=== PATIENT | female | born 2000 | race Caucasian/White ===

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

== ENCOUNTER 2022-07-04 14:43 | Emergency (ER) | payer OTHER, SELFPAY ==
[2022-07-04 14:57] VITALS: BP 124/67; PULSE 82; RESP 16; TEMP 36.6; O2SAT 100
--- NOTE | 2022-07-04 15:10 | ED.URI ---
HPI - URI/Sore Throat General Chief Complaint: Upper Respiratory Infection Stated Complaint: Fatigue,Sore Throat Time Seen by Provider: 07/04/22 15:10 History of Present Illness HPI Narrative: 22-year-old female presented for complaint of sore throat, fatigue, and chills since last night. She endorses intermittent sore throat for about a month. She denies associated sinus pressure, congestion, cough, sob, wheezing, nausea, vomiting, diarrhea or fever. She denies known sick contacts. She has taken nothing for symptoms. Related Data Home Medications Medication Instructions Recorded Confirmed No Home Medications 07/04/22 07/04/22 Allergies Allergy/AdvReac Type Severity Reaction Status Date / Time No Known Allergies Allergy Verified 07/04/22 14:46 Review of Systems Review of Systems: CONSTITUTIONAL: Denies body aches, fever, chills, or sweats. EYES: Denies visual changes, redness, or discharge. ENT: Denies rhinorrhea, congestion, or otalgia. CARDIOVASCULAR: Denies chest pain, palpitations, or edema. RESPIRATORY: Denies dyspnea. GASTROINTESTINAL: Denies abdominal pain, nausea, vomiting, or diarrhea. SKIN: Denies rash, itching, or wounds. MUSCULOSKELETAL: Denies back pain, joint pain, or myalgia. NEUROLOGIC: Denies headache PMFSH Past Medical History Medical History (Updated 07/04/22 @ 15:19 by Nisa Graf, APPRENTICE PAINTER HAND) No pertinent past medical history Exam Narrative: GENERAL: well-appearing EYES: conjunctivae clear ENT: Mucous membranes moist. TMs pearly frias with normal light reflex bilaterally; no tragal tenderness. Oropharynx mildly erythematous without lesions. Tonsils enlarged 2+ without exudate. No drooling, no hoarseness, no trismus, uvula midline. No tripod positioning, hot potato voice, or soft palate swelling. NECK: Supple. No lymphadenopathy CHEST: Clear to auscultation, breath sounds equal. HEART: Regular rate and rhythm. No murmur heard. SKIN: Warm, dry, no rash. NEURO: Alert and oriented x3. Course Course Emergency Course: Patient is aware of diagnosis, understands and agrees to treatment plan. Anticipatory guidance given. Patient agrees to follow-up as directed and is aware of reasons to seek care at the emergency department. Portions of this record may have been created with voice recognition software Level of Care: Express Care Visit Vital Signs Vital signs: Vital Signs Temperature 97.8 F 07/04/22 14:57 Pulse Rate 82 07/04/22 14:57 Respiratory Rate 16 07/04/22 14:57 Blood Pressure 124/67 07/04/22 14:57 Pulse Oximetry 100 07/04/22 14:57 Oxygen Delivery Room Air 07/04/22 14:57 Temperature 97.8 F 07/04/22 14:57 Pulse Rate 82 07/04/22 14:57 Respiratory Rate 16 07/04/22 14:57 Blood Pressure 124/67 07/04/22 14:57 Pulse Oximetry 100 07/04/22 14:57 Oxygen Delivery Room Air 07/04/22 14:57 MDM - URI/Sore Throat MDM Narrative Medical decision making narrative: strep result reviewed with pt. Advise supportive treatments. Patient is appropriate for outpatient treatment and follow-up. Differential Diagnosis Differential diagnosis: Likely upper respiratory infection, viral infection and pharyngitis Discharge Plan Discharge Clinical Impression: Pharyngitis Patient Disposition: Home, Self-Care Condition: Stable Instructions: Pharyngitis (ED) Additional Instructions: Rapid strep swab was negative today You will be notified in a few days if the culture comes back positive for strep, and appropriate antibiotics will be called in at that time. if symptoms are due to a viral illness, it is not treated with antibiotics. Viral symptoms can be present for up to 10-14 days. Recommend Flonase spray and Zyrtec for sinus congestion Cough syrup may cause drowsiness; avoid driving or take it at night time. Tylenol every 8 hours as needed for pain/fever Soft foods, cool liquids, warm tea. Gargle with warm saltwater twice a
== END 2022-07-04 15:16 | disposition home or self-care (01) ==
PROVIDERS: Emergency Provider Nurse Practitioner Family
DX: J02.9 Acute pharyngitis, unspecified (principal)
CPT/HCPCS: 87081; 87880; 99213; G0463

== ENCOUNTER 2023-05-06 13:53 | Emergency (ER) | payer OTHER, SELFPAY ==
--- NOTE | 2023-05-06 14:04 | ED.URI ---
HPI - URI/Sore Throat General Chief Complaint: Upper Respiratory Infection Stated Complaint: fever,nausea Time Seen by Provider: 05/06/23 14:04 History of Present Illness HPI Narrative: 23 y/o female presented for c/o sore throat, nausea, headache. Onset last night. Woke today with temp up to 100.8. Took 3 ibuprofen. Endorses being around crowds the past few days. Denies sob, wheezing, vomiting, or lethargy. Related Data Allergies Allergy/AdvReac Type Severity Reaction Status Date / Time No Known Allergies Allergy Verified 05/06/23 14:05 Review of Systems Review of Systems: CONSTITUTIONAL: reports body aches, fever, chills EYES: Denies visual changes, redness, or discharge. ENT: Reports sore throat Denies rhinorrhea, congestion, or otalgia. CARDIOVASCULAR: Denies chest pain, palpitations, or edema. RESPIRATORY: Denies dyspnea. GASTROINTESTINAL: Denies abdominal pain, vomiting, or diarrhea. SKIN: Denies rash, itching, or wounds. MUSCULOSKELETAL: Denies back pain, joint pain PMFSH Past Medical History Medical History No pertinent past medical history Exam Narrative: GENERAL: well-appearing, no acute distress. EYES: conjunctivae clear ENT: Mucous membranes moist. TMs pearly frias with normal light reflex bilaterally; no tragal tenderness. Oropharynx erythematous without lesions. Tonsils enlarged 2+ without exudate. No drooling, no hoarseness, no trismus, uvula midline. No tripod positioning, hot potato voice, or soft palate swelling. NECK: Supple. No lymphadenopathy CHEST: Clear to auscultation, breath sounds equal. No respiratory distress, speaks in full sentences. HEART: Regular rate and rhythm. No murmur heard. SKIN: Warm, dry, no rash. NEURO: Alert and oriented x3. Course Course Emergency Course: Patient is aware of diagnosis, understands and agrees to treatment plan. Anticipatory guidance given. Patient agrees to follow-up as directed and is aware of reasons to seek care at the emergency department. Portions of this record may have been created with voice recognition software Level of Care: Express Care Visit MDM - URI/Sore Throat MDM Narrative Medical decision making narrative: flu, covid, strep result reviewed with pt. Will treat for strep based on PE and cc. Advise supportive treatments. Patient is appropriate for outpatient treatment and follow-up. Differential Diagnosis Differential diagnosis: Likely upper respiratory infection, otitis media, sinusitis, viral infection, bronchitis, influenza and pharyngitis Discharge Plan Discharge Clinical Impression: Pharyngitis Patient Disposition: Home, Self-Care Condition: Stable Instructions: Antibiotic Form, Strep Throat (ED) Additional Instructions: - Take the antibiotic as directed. Fever and sore throat typically resolve within one to three days. Most patients can return to work, school, after 12 to 24 hours of antibiotic therapy, provided you are fever free and otherwise well. -Eat and drink things that are easy to swallow, like soft foods, cool liquids, tea with honey, or popsicles . -Salt water gargles and/or may use topical anesthetic ( Chloraseptic spray) or lozenges to relieve dryness or throat pain -Alternate Tylenol and ibuprofen as needed for pain and fever as directed. -Frequent hand washing or hand housing development specialist is one of the best ways to prevent spread of infection. Throw away the toothbrush after 24hours of antibiotic. -Follow up with primary care provider in 2-3 days if condition is not improving -Go to the ER if you have trouble breathing, cannot drink enough fluids, have muffled voice or drooling, difficulty opening your mouth, or severe swelling. Prescriptions: New amoxicillin 500 mg tablet 1,000 mg PO DAILY 10 Days Qty: 20 0RF Follow-up/Referrals: UNKNOWN,DOCTOR [Primary Care Provider] - Time of Disposition: 14:34
[2023-05-06 14:05] VITALS: BP 120/79; PULSE 110; RESP 18; TEMP 36.4; O2SAT 100
== END 2023-05-06 14:37 | disposition home or self-care (01) ==
PROVIDERS: Emergency Provider Nurse Practitioner Family
DX: J02.9 Acute pharyngitis, unspecified (principal); Z20.822 Contact with and (suspected) exposure to COVID-19
CPT/HCPCS: 87081; 87426; 87804; 87880; 99213; G0463

== ENCOUNTER 2024-06-15 14:46 | Emergency (ER) | payer OTHER, SELFPAY ==
[2024-06-15 15:06] VITALS: BP 153/83; PULSE 69; RESP 18; TEMP 36.5; O2SAT 100
--- NOTE | 2024-06-15 15:22 | ED.BACK ---
HPI - Back Pain/Injury General Chief Complaint: Back Pain/Injury Stated Complaint: lower Back Pain Time Seen by Provider: 06/15/24 15:51 Source: patient, RN notes reviewed and old records reviewed Mode of arrival: ambulatory Limitations: no limitations History of Present Illness HPI Narrative: 24-year-old female presents to the [facility] with complaints of right lower back pain for 3 weeks. States that she does a lot of heavy lifting pushing and pulling at work. Denies any loss retention of bowel bladder. No numbness or tingling in extremities. Walks with normal gait. No issues with changing positions. Denies abdominal pain. Denies any urinary symptoms. No CVA tenderness Onset (ago): week(s) (3) Related Data Allergies Allergy/AdvReac Type Severity Reaction Status Date / Time No Known Allergies Allergy Verified 06/15/24 15:30 Review of Systems Review of Systems: All systems reviewed & are unremarkable except as noted in HPI and below Constitutional: Constitutional: Reports no additional constitutional complaints ENT: Reports system reviewed and no additional complaints, except as documented Cardiovascular: Cardiovascular: Reports no additional cardiovascular complaints, Denies chest pain and Denies dyspnea Respiratory: Respiratory: Reports no additional respiratory complaints, Denies chest congestion, Denies cough and Denies dyspnea Musculoskeletal: Musculoskeletal: Reports as per HPI Integumentary/Breasts: Skin/Breast: Reports system reviewed and no additional complaints, except as docu PMFSH Past Medical History Medical History No pertinent past medical history Comments At the time of my signature, I reviewed and agree with the nursing past medical, surgical, social, and family history. There is no relevant family history pertinent to the patient complaint. Exam Const: General: cooperative, healthy appearing, comfortable, no acute distress, well developed, alert and well nourished Nutritional Appearance: well nourished Orientation/consciousness: patient oriented x3 Limitations: no limitations HENMT: Head: normal to inspection Eyes: General: appearance normal, both eyes and all related structures Alignment and Position: alignment normal Neck: Neck: normal visual inspection, full ROM, no lymphadenopathy and no meningeal signs Chest: Chest palpation & inspection: normal inspection of the chest Resp: Effort & Inspection: normal respiratory effort and able to speak in complete sentences Auscultation: clear to auscultation bilaterally, no crackles, no rales, no rhonchi and no wheezes Cardio: Rate: regular rate GI: GI Palp: No abdominal tenderness : General: Yes no CVA tenderness Back/Spine/Pelvis: Back: no CVA tenderness, No warmth, No sacral edema and No ecchymosis Cervical Spine: normal cervical lordosis, cervical ROM normal and No cervical muscular tenderness Thoracic/Lumbar Spine: No thoracic spinal tenderness and No lumbar spinal tenderness Back/spine/pelvis image:  1. Reports 3 weeks of intermittent discomfort. No erythema, ecchymosis. No rashes. No midline tenderness Skin: General skin exam: normal color and no rashes or lesions noted Neuro: General: patient oriented x3, gait normal, moves all extremities and no meningeal signs Cognition (Neuro): normal cognition Speech: normal speech Gait exam (Neuro): Normal gait present Extrem: General: normal to inspection, full ROM, capillary refill normal and normal gait Psych: Appearance: grossly normal and well kempt Mental Status: mental status grossly normal Speech and movement: Normal speech and movement present and Clear speech present Affect: normal affect Attitude: cooperative Course Course Level of Care: Express Care Visit Vital Signs Vital signs: Vital Signs Temperature 97.7 F 06/15/24 15:06 Pulse Rate 69 06/15/24 15:06 Respiratory Rate 18 06/15/24 15:06 Blood Pressure 153/83 H 06/15/24 15:06 Pulse Oximetry 100 06/15/24 15:06 Oxygen Delivery Room Air 06/15/24 15:06 Temperature 97.7 F 06/15/24 15:06 Pulse Rate 69 06/15/24 15:06 Respiratory Rate 18 06/15/24 15:06 Blood Pressure 153/83 H 06/15/24 15:06 Pulse Oximetry 100 06/15/24 15:06 Oxygen Delivery Room Air 06/15/24 15:06 Reviewed MDM - Back Pain/Injury MDM Narrative Medical decision making narrative: Patient presents with 3 week history of back pain. No injury. Patient is sitting comfortably in exam room. Is able to change positions without issue. Denies any injury. No midline tenderness. No loss retention bowel bladder. No numbness or tingling in extremities. Patient is appropriate for outpatient treatment with probable muscle strain of the lower back. Discharge instructions reviewed with patient, as well as provided in writing per nursing staff. The instructions also include specific and strict return/GO TO THE ER as well as f/u information. All questions have been answered, and the patient deny any further questions with discharge and discharge plan. Some parts of this dictation were generated by voice recognition software and may contain typographical and/or grammatical inaccuracies. Differential Diagnosis Differential diagnosis: Likely lumbar radiculopathy, sciatica and strain of lumbar region Critical Care Time Critical Care Time Critical Care Time: No Discharge Plan Discharge Clinical Impression: Low back pain Qualifiers: Chronicity: acute Back pain laterality: right Sciatica presence: without sciatica Qualified Code(s): M54.50 - Low back pain, unspecified Patient Disposition: Home, Self-Care Condition: Stable Instructions: Low Back Strain (ED), Lower Back Exercises (ED) Additional Instructions: Take ibuprofen as directed to decrease inflammation and to help pain. Take Baclofen (muscle relaxer) as directed. Do not drink, drive, operate machinery, or do anything dangerous while taking this medication Exercise:Combine aerobic exercise, like walking or swimming, with specific exercises to keep the muscles in your back and abdomen strong and flexible. Proper Lifting:Be sure to lift heavy items with your legs, not your back. Do not bend over to pick something up. Keep your back straight and bend at your knees. Weight:Maintain a healthy weight. Being overweight puts added stress on your lower back. Avoid Smoking:Both the smoke and the nicotine cause your spine to age faster than normal. Proper Posture:Good posture is important for avoiding future problems. A therapist can teach you how to safely stand, sit, and lift. Use warm moist heat to help with pain. Using topical such as Biofreeze, Johnny-Brian or Aspercreme can also help Follow up with Primary provider in 2-3 days, This may become a chronic condition and they will be the one to help manage your pain and order additional testing. If you are having a hard time finding a physician please call our [facility] liaison at [phone]. Go to the nearest ER if you develop problems with bladder/bowel function, weakness or loss of feeling in one or both of your legs. Patient Language: Peruvian Prescriptions: New ibuprofen 600 mg tablet 600 mg PO TID PRN (Reason: fever or pain) Qty: 30 0RF baclofen 10 mg tablet 10 mg PO TID PRN (Reason: muscle pain) Qty: 10 0RF Follow-up/Referrals: PHYSICIAN,GRAPHIC DESIGN INTERN [Primary Care Provider] - Stand Alone Forms: Work/School Release IP Time of Disposition: 15:57
--- OUTSIDE RECORDS SUMMARY | 2024-06-15 17:14 | XMS_ITS | Continuity of Care Document ---
Author Organization [facility], TD Address [address] [place] [address] Phone Care Team Providers Care Vending Machine Filler Name Role Phone Ravi Ibarra MD Unavailable Unavailable Allergies, Adverse Reactions, Alerts Substance Reaction Status Criticality No Known Drug Allergies Active No I nformation Medications Medication Instructions Dosage Effective Dates (start - stop) Status Comments CALCIO JONATHAN (unknown strength) Not Available - Active MULTIVITAMINS (unknown strength) Not Available - Active Procedures Procedure Date EYE EXAM ESTABLISHED PATIENT, MEDICAL Au EYE EXAM ESTABLISHED PATIENT, MEDICAL No REFRACTION NO UPDATE EYE EXAM ESTABLISHED PATIENT, MEDICAL Ju l REFRACTION OPTIONAL UPDATE EYE EXAM ESTABLISHED PATIENT, MEDICAL Ap r REFRACTION OPTIONAL UPDATE Advance Directives Directive Yes / No Effective Date File Name No Information Encounters Encounter Description Practice Location Reason(s) For Visit Diagnoses Date Provider Providers Copied on Encounter [facility], [facility], [address] [place], [place], [id number] , [place] tel: [phone] [facility] no problems with vision and no complaints (chief complaint). (chief complaint)n o problems with vision and no complaints (chief complaint). (chief complaint) Congenital nuclear cataractHypermetropi a 5 Fred Rodrigues. [address], [place], [id number] , [place]. tel: [phone] [facility], [address] [place] [address], [id number] , tel: [phone] [facility] no problems with V/A and no complaints (chief complaint) Congenital nuclear cataractHypermetropi a 3 Fred Rodrigues. [address] [place] [address], [address] [place] [address] , . tel: [phone] [facility], [address] [place] [address], [address] [place] [address] , tel: [phone] [facility] no problems with V/A and no complaints (chief complaint) HypermetropiaCongeni marily nuclear cataract 2 Fred Rodrigues. [address] [place] [address], [address] [place] [address] , . tel: [phone] [facility], [address] [place] [address], [address] [place] [address] , tel: [phone] [facility] No Information 1 Fred Rodrigues. [address] [place] [address], [address] [place] [address] , . tel: [phone] Family History Family Member Type Diagnosis Age At Onset Problem (finding) No Family history of St roke Problem (finding) No Family history of Ca taracts Problem (finding) No Family history of Re spiratory Disease Problem (finding) No Family history of As thma Problem (finding) No Family history of Di abetes mellitus Problem (finding) No Family history of He art Disease Problem (finding) No Family history of St rabismus Problem (finding) No Family history of Gl aucoma Mother Problem (finding) Alive and well Problem (finding) No Family history of HB P Problem (finding) No Family hist ory of Macular Degeneration Problem (finding) No Family history of Re tinal Disorders Father Problem (finding) aphasia Payers Payer name Insurance type Covered constitution party ID Authoriza tion(s) No Information Social History Type Description Quantity Date Captured Comments Alcohol Use Details Unknown Caffeine Use Details Unknown Tobacco Use Status No Information Smoking Status No Information Sex Female Chief Complaint And Reason For Visit From encounter dated '11/27/2014 10:30'. no problems with vision and no complaints (chief complaint). Description: The 14 Year 10 Months oldfemale presents for followup Congenital Cataract OD. Pt reports no problems with vision and no complaints in the right eye and left eye since last seen on 03/07/13. Vision good, stable and constant D& N c gls and cls. The patient denies pain or discomfort. Pt is not using eye gtts. . (chief complaint). Description: Mother reports patient sees a at [facility] in their hometown for yearly refraction. Pt was last seen 04/04/14. no problems with vision and no complaints (chief complaint) . (chief complaint) Reason For Referral Reason For Referral No Information History Of Present Illness Encounter Date Complaint History Of Prese nt Illness no problems with vis ion and no complaints The 14 Year 10 Months old female presents for followup Congenital Cataract OD. Pt reports no problems with vision and no complaints in the right eye and left eye since last seen on 03/07/13. Vision good, stable and constant D & N c gls and cls. The patient denies pain or discomfort. Pt is not using eye gtts. . Mother reports p atient sees a at [facility] in their hometown for yearly refraction. Pt was last seen 04/04/14. Functional Status Date Functional Assessmen t No Information Instructions Date Instruction Additional Infor mike Impression/Plan - Co ngenital cataract looks unchanged in the OD. Things look stable overall. Can continue with current glasses & C/L Rx (pt. gets refraction & C/L elsewhere since she lives far away). Will follow up in 1 year. Pt. to call if problems. Follow up - Return i n [address] [facility] for T & D. - Return in [address] [facility] for Ref T & D. Related to Congenital cataract Congenital cataract OD. Condition: established, stable. Hyperopia OU. Condition: established, stable. - Cataract is staying the same OD. Current C/L Rx is adequate. Will follow up in 1 year. Pt. to call if having any problems. Related to Congenital cataract - Return in 1 year w [facility] for C/L Ref T & D. Related to Congenital cataract Hyperopia OU. Condit ion: established, stable. Congenital cataract OD. Condition: established, stable. - Educational materials provided:none needed. The cataract is staying stable. Ok to try contact lens if mom feels she can take care of them. Recommend soft disposable contact lens. She can not sleep in them. No extended wear until at least age 18. Related to Congenital cataract Assessments Type Assessment Date assessment Congenital nuclear cataract assessment Hypermetropia Patient Care Teams Name Effective Dates (start - stop) Status Members No Information
--- OUTSIDE RECORDS SUMMARY | 2024-06-15 17:14 | XMS_ITS | Clinical Summary ---
Author Organization [facility] Address [address] [place] [id number] Care Team Providers Care Watchstander Name Role Phone Ro Arredondo MD Primary Care Provider Allergies No known active allergies Medications No known medications Active Problems Problem Noted Date Diagnosed Date Ingrowing nail 05/04/2015 Paronychia of toe 05/04/2015 Resolved Problems Problem Noted Date Diagnosed Date Resolved Date Well child visit 05/04/2015 01/09/2021 Family History Medical History Relation Comments Alzheimers Father No Known Problems Maternal Grandfather Heart Disease Maternal Grandmother Lung Disease Maternal Grandmother No Known Problems Mother Cancer Paternal Grandfather Bone Alzheimers Paternal Grandmother Relation Status Comments Father Maternal Grandfather Maternal Grandmother Mother Paternal Grandfather Paternal Grandmother Social History Tobacco Use Types Packs/Day Years Used Date Smoking Tobacco: Never Smokeless Tobacco: Never Tobacco Cessation:Counseling Given: No Alcohol Use Standard Drinks/Week Comments Never 0 (1 standard drink = 0.6 oz pur e alcohol) PHQ-2 Answer Date Recorded PHQ-2 Score - If the patient scores above 3, please move on to questions 3-9 0 01/03/2021 Comments Unknown Sex and Gender Information Value Date Recorded Sex Assigned at Female 01/03/2021 4:24 PM CDT Legal Sex Female 8:27 PM CDT Gender Identity Female 01/03/2021 4:24 PM CDT Sexual Orientation Straight 01/03/2021 4: 24 PM CDT Last Filed Vital Signs Vital Sign Reading Time Taken Comments Blood Pressure 122/80 09/05/2022 5:12 PM CDT Pulse 81 09/05/2022 5:12 PM CDT Temperature - - Respiratory Rate 20 07/25/2022 2:45 PM CDT Oxygen Saturation 100% 09/05/2022 5:12 PM CDT Inhaled Oxygen Concentration - - Weight 100.5 kg (221 lb 9.6 oz) 09/05/2022 5:12 PM CDT Height 165.1 cm (5' 5 ) 07/25/2022 2:45 PM CDT Body Mass Index 36.88 07/25/2022 2:45 PM CDT Plan of Treatment Health Maintenance Due Date Last Done Comments Cervical Cancer Screening Pa p Smear (Age 21 to 29) Every 3 Years 2002 Cervical Cancer Screening 2002 Annual Physical 2005 PHQ-2 ([employer]) 2014 HPV Vaccines (1 - 3-dose series) 2017 Meningococcal B Vaccine (1 o f 2 - Standard) 2018 Hepatitis C 01/15/2020 DTaP, Tdap and Td Vaccines ( 1 - Tdap) 2021 Hepatitis B Vaccines (1 of 3 - 19+ 3-dose series) 2021 COVID-19 Vaccine (3 - 2023-2 5 season) 2023 09/28/2020, 09/07/2020 Influenza Adult (#1) 2024 PHQ-2 ([employer]) 04/22/2024 Meningococcal Vaccine Aged Out No alexx judah eligible based on patient's age to complete this topic Pneumococcal Vaccine: Pediatrics (0 to 5 Years) and At-Risk Patients (6 to 64 Years) Aged Out No longer eligible b ased on patient's age to complete this topic RSV Immunizations Under 20 Months Aged Out No longer eligible b ased on patient's age to complete this topic Insurance AJ Care Teams Watchstander Relationship Specialty Start Date End Date Ro Arredondo MD [address] [place] [address] [place] [address] PCP - General PEDIATRICS 12/12/20
--- OUTSIDE RECORDS SUMMARY | 2024-06-15 17:14 | XMS_ITS | Clinical Summary ---
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 Gender Identity Not on file Sexual Orientation Not on file Plan of Treatment Health Maintenance Due Date Last Done Comments Hepatitis C Virus (HCV) Screening 2002 TdaP Immunization 2002 Human Papillomavirus (HPV) Immunization (1 - 3-dose series) 2017 Meningococcal B Immunization (1 of 2 - Standard) 2018 Hepatitis B Immunization (1 of 3 - 19+ 3-dose series) 2021 Pap Smear 2023 Influenza Immunization (#1) 2023 SARS-COV-2 Immunization (3 - season) 2023 09/28/2020, 09/07/2020 Respiratory Syncytial Virus (RSV) Immunization (Adult) (1 - 1-dose 75+ series) 2077 Meningococcal Immunization (ACWY) Aged Out No longer eligible b ased on patient's age to complete this topic Pneumococcal Immunization Combined Aged Out No longer eligible b ased on patient's age to complete this topic Rotavirus Immunization Aged Out No lo nger eligible based on patient's age to complete this topic
--- OUTSIDE RECORDS SUMMARY | 2024-06-15 17:18 | XMS_ITS | Continuity of Care Document ---
Author Organization [facility], TD Address [address] [place] [address] Phone Care Team Providers Care Marble Polisher Name Role Phone Ravi Ibarra MD Unavailable Unavailable Allergies, Adverse Reactions, Alerts Substance Reaction Status Criticality No Known Drug Allergies Active No I nformation Medications Medication Instructions Dosage Effective Dates (start - stop) Status Comments MULTIVITAMINS (unknown strength) Not Available - Active CALCIO JONATHAN (unknown strength) Not Available - Active Procedures [...] Diagnoses Date Provider Providers Copied on Encounter [facility], [facility], [address], [place], [id number] , [place] tel: [phone] [facility] no problems with vision and no complaints (chief complaint). (chief complaint)n o problems with vision and no complaints (chief complaint). (chief complaint) Congenital nuclear cataractHypermetropi a 5 Fred Rodrigues. [address], [place], [id number] , [place]. tel: [phone] [facility], [address] [place] [address], [id number] , tel: [phone] [facility] no problems with V/A and no complaints (chief complaint) Congenital nuclear cataractHypermetropi a 3 Fred Rodrigues. [address] [place] [address], [address] [place] [address] , . tel: [phone] [facility], [address] [place] [address], [id number] , tel: [phone] [facility] no problems with V/A and no complaints (chief complaint) HypermetropiaCongeni marily nuclear cataract 2 Fred Rodrigues. [address] [place] [address], [address] [place] [address] , . tel: [phone] [facility], [address] [place] [address], [address] [place] [address] , tel: [phone] [facility] No Information 1 Fred Rodrigues. [address] [place] [address], [address] [place] [address] , . tel: [phone] Family History Family Member Type Diagnosis Age At Onset Problem (finding) No Family history of Re tinal Disorders Problem (finding) No Family hist ory of Macular Degeneration Problem (finding) No Family history of HB P Mother Problem (finding) Alive and well Problem (finding) No Family history of Gl aucoma Problem (finding) No Family history of St rabismus Problem (finding) No Family history of He art Disease Problem (finding) No Family history of Di abetes mellitus Problem (finding) No Family history of As thma Problem (finding) No Family history of Re spiratory Disease Problem (finding) No Family history of Ca taracts Father Problem (finding) aphasia Problem (finding) No Family history of St roke Payers Payer name Insurance type Covered libertarian ID Authoriza tion(s) No Information Social History [...] Description: Mother reports patient sees a at [facility] in their hometown for yearly refraction. Pt [...] Mother reports p atient sees a at [facility] in their hometown for yearly refraction. Pt [...] - Return i n 1 year with [facility] for T & D. - Return in 1 year with [facility] for Ref T & D. Related to [...]
== END 2024-06-15 16:00 | disposition home or self-care (01) ==
PROVIDERS: Emergency Provider Nurse Practitioner
DX: M54.50 Low back pain, unspecified (principal)
CPT/HCPCS: 99213; G0463